=== PATIENT | female | born 1930 | race Caucasian/White ===

== ENCOUNTER → 2016-08-21 | Outpatient (REF) | payer MEDICARE, BC ==
[~2016-08-21] MED LIST: /AMIO20TA PO; /ESOM40CA OR; ACET50TAOT PO; ATEN25TA PO; BAYE325T12 PO; CALC600T30 PO; NEUR100C OR; NEUR300C OR; PAIN325T OR; SENN8.6T5 OR; TRAM50TA2 OR; VIT D 2000 OR
[2016-08-21 19:21] LABS: MEAN CORPUSCULAR HEMOGLOBIN 32.4 pg (27.0-33.0); MEAN CORPUSCULAR HGB CONC 32.9 g/dl (32.0-36.5); MEAN CORPUSCULAR VOLUME 98.3 fl (80.0-96.0)
[2016-08-21 19:42] LABS: ALBUMIN 3.9 GM/DL (3.2-5.2); ALBUMIN/GLOBULIN RATIO 1.39 (1.00-1.93); BILIRUBIN,TOTAL 0.7 MG/DL (0.2-1.0); CREATININE FOR GFR 1.08 MG/DL (0.55-1.02); MAGNESIUM LEVEL 2.3 MG/DL (1.8-2.4); TOTAL PROTEIN 6.7 GM/DL (6.4-8.2)
== END ==
LOC: M LABDRWAD 08:58
PROVIDERS: ATTEND Physician Assistant
DX: I48.0 Paroxysmal atrial fibrillation (principal); I11.9 Hypertensive heart disease without heart failure

== ENCOUNTER → 2017-01-19 | Outpatient (CLI) | payer MEDICARE, BC ==
--- NOTE | 2017-01-19 13:35 | REP ---
Clinical: Chest pain with paroxysmal atrial fibrillation. Technique: PA and lateral. Comparison: 08/08/2016. Findings: Mediastinum and cardiac silhouette are stable. Pacemaker in stable satisfactory position. Lung maria demonstrate diffuse chronic interstitial changes similar to prior examination. A very subtle right upper lobe density overlying the posterior sixth rib cannot be excluded and may warrant chest CT follow-up. No further consolidation, effusion, or pneumothorax. Skeletal structures demonstrate osteopenia and degenerative changes including chronic stable compression deformity at T6. Impression: 1. Cannot exclude subtle right upper lobe density. Consider chest CT for further investigation if necessary. 2. Chronic stable changes. No further acute cardiopulmonary process identified. Signed by Austin Hartman MD 01/19/2017 01:27 P
[2017-01-19 21:36] LABS: ALBUMIN 3.7 GM/DL (3.2-5.2); ALBUMIN/GLOBULIN RATIO 1.32 (1.00-1.93); BILIRUBIN,TOTAL 0.5 MG/DL (0.2-1.0); CALCIUM LEVEL 9.1 MG/DL (8.8-10.2); GLOMERULAR FILTRATION RATE 55.7 (>32); MAGNESIUM LEVEL 2.3 MG/DL (1.8-2.4); POTASSIUM SERUM 4.5 MEQ/L (3.5-5.1); TOTAL PROTEIN 6.5 GM/DL (6.4-8.2)
== END ==
LOC: M ADAMS 13:07
PROVIDERS: ATTEND Physician Assistant
DX: I48.0 Paroxysmal atrial fibrillation (principal); I11.9 Hypertensive heart disease without heart failure; R91.8 Other nonspecific abnormal finding of lung field

== ENCOUNTER → 2017-09-22 | Outpatient (REF) | payer MEDICARE, BC ==
[2017-09-23 14:37] LABS: AMYLASE 97 U/L (25-115)
[2017-09-23 14:37] LABS: LIPASE 315 U/L (73-393)
== END ==
LOC: M LAB REF 13:42
DX: R11.2 Nausea with vomiting, unspecified (principal); R74.0 Nonspecific elevation of levels of transaminase and lactic acid dehydrogenase [LDH]
CPT/HCPCS: 82150

== ENCOUNTER → 2017-09-29 | Outpatient (REF) | payer MEDICARE, BC | LOC: M LAB REF 16:21 | DX: R30.0 Dysuria (principal); R35.0 Frequency of micturition | CPT/HCPCS: 87186 ==

== ENCOUNTER → 2017-10-09 | Outpatient (REF) | payer MEDICARE, BC ==
[2017-10-09 13:05] LABS: BILIRUBIN,DIRECT 0.5 MG/DL (0.0-0.2)
== END ==
LOC: M LAB REF 12:27
DX: R74.0 Nonspecific elevation of levels of transaminase and lactic acid dehydrogenase [LDH] (principal)
CPT/HCPCS: 82248

== ENCOUNTER → 2017-10-13 | Outpatient (REF) | payer MEDICARE, BC ==
[2017-10-13 20:12] LABS: ALBUMIN 3.8 GM/DL (3.2-5.2); ALKALINE PHOSPHATASE 118 U/L (45-117); ALT/SGPT 39 U/L (12-78); ANION GAP 8 MEQ/L (8-16); AST/SGOT 29 U/L (7-37); BILIRUBIN,DIRECT 0.5 MG/DL (0.0-0.2); BILIRUBIN,TOTAL 0.9 MG/DL (0.2-1.0); BLOOD UREA NITROGEN 30 MG/DL (7-18); CALCIUM LEVEL 9.3 MG/DL (8.8-10.2); CARBON DIOXIDE LEVEL 27 MEQ/L (21-32); CHLORIDE LEVEL 108 MEQ/L (98-107); CREATININE FOR GFR 1.35 MG/DL (0.55-1.30); GLOMERULAR FILTRATION RATE 39.3 (>32); GLUCOSE, FASTING 90 MG/DL (70-100); POTASSIUM SERUM 4.5 MEQ/L (3.5-5.1); SODIUM LEVEL 143 MEQ/L (136-145); TOTAL PROTEIN 7.6 GM/DL (6.4-8.2)
== END ==
LOC: M LAB REF 19:22
DX: R94.5 Abnormal results of liver function studies (principal)
CPT/HCPCS: 82248

== ENCOUNTER 2017-11-02 12:03 | Inpatient (IN) | payer MEDICARE, BC ==
[2017-11-02] MEDS: POTASSIUM CHLORIDE 10 MEQ SR TABLET PO (09:00)
[2017-11-02] MEDS: AMIODARONE 200 MG TAB (PACERONE) PO (09:00)
[2017-11-02] MEDS: MULTIVITAMINS/MINERALS THERAP 1 TAB PO (09:00)
[~2017-11-02 12:03] MED LIST changes: -/AMIO20TA PO; -/ESOM40CA OR; -ACET50TAOT PO; -ATEN25TA PO; -BAYE325T12 PO; -CALC600T30 PO; +ENOXAPARIN 40 MG/0.4 ML SYRINGE (J1650) SC; -NEUR100C OR; -NEUR300C OR; -PAIN325T OR; -SENN8.6T5 OR; -TRAM50TA2 OR; -VIT D 2000 OR
[2017-11-02 12:53] LABS: VENOUS BASE EXCESS 4.3 (-2.0-2.0); VENOUS HCO3 30.7 MEQ/L (23.0-27.0); VENOUS PARTIAL PRESSURE CO2 54.9 mmHg (38.0-50.0); VENOUS PARTIAL PRESSURE O2 28.4 mmHg (30.0-50.0); VENOUS PH 7.366 UNITS (7.330-7.430); VENOUS STANDARD HCO3 27.4 MEQ/L; VENOUS TOTAL CO2 32.4 MEQ/L (24.0-28.0)
[2017-11-02 13:00] LABS: BASO % 0.1 % (0.0-1.0); HEMATOCRIT 37.5 % (36.0-47.0); HEMOGLOBIN 12.7 g/dl (12.0-15.5); IMMATURE GRANULOCYTE % 1.1 % (0-3.0); LYMPH # 0.8 10^3/uL (1.5-4.5); LYMPH % 4.3 % (24.0-44.0); MEAN CORPUSCULAR HEMOGLOBIN 32.3 pg (27.0-33.0); MEAN CORPUSCULAR HGB CONC 33.9 g/dl (32.0-36.5); MEAN CORPUSCULAR VOLUME 95.4 fl (80.0-96.0); MONO # 1.3 10^3/uL (0.0-0.8); MONO % 7.2 % (0.0-5.0); NEUTROPHILS # 15.5 10^3/uL (1.8-7.7); NEUTROPHILS % 87.3 % (36.0-66.0); PLATELET COUNT, AUTOMATED 161 10^3/uL (150-450); RED BLOOD COUNT 3.93 10^6/uL (4.00-5.40); RED CELL DISTRIBUTION WIDTH 13.8 % (11.5-14.5); WHITE BLOOD COUNT 17.8 10^3/uL (4.0-10.0)
[2017-11-02 13:09] LABS: ALBUMIN 3.2 GM/DL (3.2-5.2); ALBUMIN/GLOBULIN RATIO 0.94 (1.00-1.93); ALKALINE PHOSPHATASE 145 U/L (45-117); ALT/SGPT 78 U/L (12-78); ANION GAP 6 MEQ/L (8-16); AST/SGOT 78 U/L (7-37); BILIRUBIN,DIRECT 0.4 MG/DL (0.0-0.2); BILIRUBIN,TOTAL 1.2 MG/DL (0.2-1.0); BLOOD UREA NITROGEN 32 MG/DL (7-18); CALCIUM LEVEL 9.1 MG/DL (8.8-10.2); CARBON DIOXIDE LEVEL 30 MEQ/L (21-32); CHLORIDE LEVEL 107 MEQ/L (98-107); CPK CREATINE PHOSPHOKINASE 476 U/L (26-192); CREATININE FOR GFR 0.99 MG/DL (0.55-1.30); GLOMERULAR FILTRATION RATE 56.2 (>32); GLUCOSE, FASTING 108 MG/DL (70-100); POTASSIUM SERUM 4.1 MEQ/L (3.5-5.1); SODIUM LEVEL 143 MEQ/L (136-145); TOTAL PROTEIN 6.6 GM/DL (6.4-8.2); TROPONIN I 0.02 NG/ML (< 0.10)
[2017-11-02 13:15] LABS: AMMONIA < 10 uMOL/L (<32)
[2017-11-02 13:15] LABS: CK-MB VALUE MASS 4.9 NG/ML (<3.6); MB/CK RELATIVE INDEX 1.02 (< OR =4)
[2017-11-02 13:51] LABS: LACTIC ACID SEPSIS PROTOCOL 1.6 MMOL/L (0.4-2.0)
[2017-11-02] MEDS: NS 1,000 ML IV ×2 (15:20→22:10)
[2017-11-02 17:11] LABS: KETONE, URINE AUTO RFX TRACE mg/dL (NEGATIVE); LEUKOCYTE ESTERASE UR AUTO RFX NEGATIVE (NEGATIVE); MUCUS, URINE RFX SMALL (NEGATIVE); NITRITE, URINE AUTO RFX NEGATIVE (NEGATIVE); RBC, URINE AUTO RFX 2 /HPF (0-3); SQUAM EPITHELIAL CELL UR AURFX 0 /HPF (0-6); WBC, URINE AUTO RFX 7 /HPF (0-3)
[2017-11-02 20:50] LABS: CPK CREATINE PHOSPHOKINASE 308 U/L (26-192); MB/CK RELATIVE INDEX 0.97 (< OR =4); TROPONIN I < 0.02 NG/ML (< 0.10)
[2017-11-02] MEDS: APIXABAN 2.5 MG TAB (ELIQUIS) PO (22:10)
[2017-11-03 05:05] LABS: HEMATOCRIT 31.9 % (36.0-47.0); MEAN CORPUSCULAR HEMOGLOBIN 31.7 pg (27.0-33.0); MEAN CORPUSCULAR HGB CONC 33.2 g/dl (32.0-36.5); MEAN CORPUSCULAR VOLUME 95.5 fl (80.0-96.0); PLATELET COUNT, AUTOMATED 150 10^3/uL (150-450); RED BLOOD COUNT 3.34 10^6/uL (4.00-5.40); RED CELL DISTRIBUTION WIDTH 14.1 % (11.5-14.5)
[2017-11-03 05:10] LABS: HEMOGLOBIN 10.6 g/dl (12.0-15.5)
[2017-11-03 05:24] LABS: ALBUMIN 2.4 GM/DL (3.2-5.2); ALBUMIN/GLOBULIN RATIO 0.69 (1.00-1.93); ALKALINE PHOSPHATASE 99 U/L (45-117); ALT/SGPT 51 U/L (12-78); ANION GAP 8 MEQ/L (8-16); AST/SGOT 43 U/L (7-37); BLOOD UREA NITROGEN 30 MG/DL (7-18); CALCIUM LEVEL 8.4 MG/DL (8.8-10.2); CARBON DIOXIDE LEVEL 24 MEQ/L (21-32); CHLORIDE LEVEL 110 MEQ/L (98-107); CPK CREATINE PHOSPHOKINASE 170 U/L (26-192); CREATININE FOR GFR 0.89 MG/DL (0.55-1.30); GLOMERULAR FILTRATION RATE > 60.0 (>32); GLUCOSE, FASTING 89 MG/DL (70-100); MAGNESIUM LEVEL 2.1 MG/DL (1.8-2.4); POTASSIUM SERUM 3.8 MEQ/L (3.5-5.1); SODIUM LEVEL 142 MEQ/L (136-145); TOTAL PROTEIN 5.9 GM/DL (6.4-8.2); TROPONIN I 0.02 NG/ML (< 0.10)
[2017-11-03 05:25] LABS: CK-MB VALUE MASS 1.6 NG/ML (<3.6); MB/CK RELATIVE INDEX 0.94 (< OR =4)
[2017-11-03] MEDS: LEVOTHYROXINE 50MCG TABLET (0.05MG) PO (06:05)
[2017-11-03] MEDS: APIXABAN 2.5 MG TAB (ELIQUIS) PO ×2 (08:35→21:18)
[2017-11-03] MEDS: POTASSIUM CHLORIDE 10 MEQ SR TABLET PO (08:35)
[2017-11-03] MEDS: MULTIVITAMINS/MINERALS THERAP 1 TAB PO (08:35)
[2017-11-03] MEDS: AMIODARONE 200 MG TAB (PACERONE) PO (08:35)
[2017-11-03] MEDS: BISOPROLOL FUMARATE 10 MG TAB PO (08:36)
[2017-11-03] MEDS: ACETAMINOPHEN TAB 650MG DOSE (2X325MG) PO ×2 (08:40→17:46)
[2017-11-03] MEDS: ONDANSETRON 4MG/2ML VIAL (J2405) IV (09:02)
[2017-11-03 09:09] LABS: VITAMIN B12 LEVEL 565 PG/ML (247-911)
[2017-11-03 13:09] LABS: CPK CREATINE PHOSPHOKINASE 159 U/L (26-192); TROPONIN I < 0.02 NG/ML (< 0.10)
[2017-11-03 13:10] LABS: CK-MB VALUE MASS 1.9 NG/ML (<3.6); MB/CK RELATIVE INDEX 1.19 (< OR =4)
[2017-11-04 05:18] LABS: HEMATOCRIT 32.2 % (36.0-47.0); HEMOGLOBIN 10.5 g/dl (12.0-15.5); MEAN CORPUSCULAR HEMOGLOBIN 31.8 pg (27.0-33.0); MEAN CORPUSCULAR HGB CONC 32.6 g/dl (32.0-36.5); MEAN CORPUSCULAR VOLUME 97.6 fl (80.0-96.0); PLATELET COUNT, AUTOMATED 146 10^3/uL (150-450); WHITE BLOOD COUNT 9.2 10^3/uL (4.0-10.0)
[2017-11-04 05:42] LABS: ALBUMIN 2.4 GM/DL (3.2-5.2); ALBUMIN/GLOBULIN RATIO 0.71 (1.00-1.93); ALKALINE PHOSPHATASE 86 U/L (45-117); ALT/SGPT 41 U/L (12-78); ANION GAP 2 MEQ/L (8-16); AST/SGOT 23 U/L (7-37); BILIRUBIN,TOTAL 0.7 MG/DL (0.2-1.0); BLOOD UREA NITROGEN 27 MG/DL (7-18); CALCIUM LEVEL 8.5 MG/DL (8.8-10.2); CARBON DIOXIDE LEVEL 29 MEQ/L (21-32); CHLORIDE LEVEL 112 MEQ/L (98-107); CREATININE FOR GFR 0.78 MG/DL (0.55-1.30); GLOMERULAR FILTRATION RATE > 60.0 (>32); GLUCOSE, FASTING 94 MG/DL (70-100); POTASSIUM SERUM 3.9 MEQ/L (3.5-5.1); SODIUM LEVEL 143 MEQ/L (136-145); TOTAL PROTEIN 5.8 GM/DL (6.4-8.2)
[2017-11-04] MEDS: LEVOTHYROXINE 50MCG TABLET (0.05MG) PO (06:10)
[2017-11-04] MEDS: POTASSIUM CHLORIDE 10 MEQ SR TABLET PO (07:57)
[2017-11-04] MEDS: MULTIVITAMINS/MINERALS THERAP 1 TAB PO (07:57)
[2017-11-04] MEDS: AMIODARONE 200 MG TAB (PACERONE) PO (07:57)
[2017-11-04] MEDS: BISOPROLOL FUMARATE 10 MG TAB PO (07:58)
[2017-11-04] MEDS: APIXABAN 2.5 MG TAB (ELIQUIS) PO ×2 (07:58→20:34)
[2017-11-04] MEDS: ACETAMINOPHEN TAB 650MG DOSE (2X325MG) PO (20:35)
[2017-11-05 04:41] LABS: HEMATOCRIT 32.2 % (36.0-47.0); HEMOGLOBIN 10.5 g/dl (12.0-15.5); MEAN CORPUSCULAR HEMOGLOBIN 30.9 pg (27.0-33.0); MEAN CORPUSCULAR HGB CONC 32.6 g/dl (32.0-36.5); MEAN CORPUSCULAR VOLUME 94.7 fl (80.0-96.0); PLATELET COUNT, AUTOMATED 160 10^3/uL (150-450); RED CELL DISTRIBUTION WIDTH 13.8 % (11.5-14.5); WHITE BLOOD COUNT 7.5 10^3/uL (4.0-10.0)
[2017-11-05 05:05] LABS: ALBUMIN 2.3 GM/DL (3.2-5.2); ALBUMIN/GLOBULIN RATIO 0.62 (1.00-1.93); ALKALINE PHOSPHATASE 84 U/L (45-117); ALT/SGPT 32 U/L (12-78); ANION GAP 6 MEQ/L (8-16); AST/SGOT 20 U/L (7-37); BILIRUBIN,TOTAL 0.4 MG/DL (0.2-1.0); BLOOD UREA NITROGEN 21 MG/DL (7-18); CALCIUM LEVEL 8.4 MG/DL (8.8-10.2); CARBON DIOXIDE LEVEL 26 MEQ/L (21-32); CHLORIDE LEVEL 111 MEQ/L (98-107); CREATININE FOR GFR 0.68 MG/DL (0.55-1.30); GLOMERULAR FILTRATION RATE > 60.0 (>32); GLUCOSE, FASTING 99 MG/DL (70-100); MAGNESIUM LEVEL 2.1 MG/DL (1.8-2.4); POTASSIUM SERUM 3.9 MEQ/L (3.5-5.1); SODIUM LEVEL 143 MEQ/L (136-145)
[2017-11-05] MEDS: LEVOTHYROXINE 50MCG TABLET (0.05MG) PO (06:00)
[2017-11-05] MEDS: APIXABAN 2.5 MG TAB (ELIQUIS) PO ×2 (09:02→20:26)
[2017-11-05] MEDS: BISOPROLOL FUMARATE 10 MG TAB PO (09:02)
[2017-11-05] MEDS: MULTIVITAMINS/MINERALS THERAP 1 TAB PO (09:02)
[2017-11-05] MEDS: AMIODARONE 200 MG TAB (PACERONE) PO (09:02)
[2017-11-05] MEDS: POTASSIUM CHLORIDE 10 MEQ SR TABLET PO (09:02)
[2017-11-06] MEDS: LEVOTHYROXINE 50MCG TABLET (0.05MG) PO (05:47)
[2017-11-06 07:14] LABS: HEMATOCRIT 33.9 % (36.0-47.0); HEMOGLOBIN 11.4 g/dl (12.0-15.5); MEAN CORPUSCULAR HEMOGLOBIN 31.5 pg (27.0-33.0); MEAN CORPUSCULAR HGB CONC 33.6 g/dl (32.0-36.5); MEAN CORPUSCULAR VOLUME 93.6 fl (80.0-96.0); PLATELET COUNT, AUTOMATED 204 10^3/uL (150-450); RED BLOOD COUNT 3.62 10^6/uL (4.00-5.40); RED CELL DISTRIBUTION WIDTH 13.5 % (11.5-14.5); WHITE BLOOD COUNT 6.8 10^3/uL (4.0-10.0)
[2017-11-06 07:38] LABS: ALBUMIN 2.5 GM/DL (3.2-5.2); ALBUMIN/GLOBULIN RATIO 0.69 (1.00-1.93); ALKALINE PHOSPHATASE 77 U/L (45-117); ALT/SGPT 30 U/L (12-78); ANION GAP 8 MEQ/L (8-16); AST/SGOT 19 U/L (7-37); BILIRUBIN,TOTAL 0.6 MG/DL (0.2-1.0); BLOOD UREA NITROGEN 17 MG/DL (7-18); CALCIUM LEVEL 8.7 MG/DL (8.8-10.2); CARBON DIOXIDE LEVEL 27 MEQ/L (21-32); CHLORIDE LEVEL 105 MEQ/L (98-107); CREATININE FOR GFR 0.67 MG/DL (0.55-1.30); GLOMERULAR FILTRATION RATE > 60.0 (>32); GLUCOSE, FASTING 87 MG/DL (70-100); POTASSIUM SERUM 4.1 MEQ/L (3.5-5.1); SODIUM LEVEL 140 MEQ/L (136-145); TOTAL PROTEIN 6.1 GM/DL (6.4-8.2)
[2017-11-06] MEDS: BISOPROLOL FUMARATE 10 MG TAB PO (10:04)
[2017-11-06] MEDS: POTASSIUM CHLORIDE 10 MEQ SR TABLET PO (10:04)
[2017-11-06] MEDS: MULTIVITAMINS/MINERALS THERAP 1 TAB PO (10:05)
[2017-11-06] MEDS: AMIODARONE 200 MG TAB (PACERONE) PO (10:05)
[2017-11-06] MEDS: APIXABAN 2.5 MG TAB (ELIQUIS) PO (10:05)
== END 2017-11-06 14:55 | DRG 544 ==
LOC: M MS5PR 11-05 14:03 → M ED 12:03 → M ED INP 17:24 → M ICU 20:57
DX: M80.88XA Other osteoporosis with current pathological fracture, vertebra(e), initial encounter for fracture (principal); E86.0 Dehydration; R55 Syncope and collapse; D72.829 Elevated white blood cell count, unspecified; I48.91 Unspecified atrial fibrillation; Z79.01 Long term (current) use of anticoagulants; I10 Essential (primary) hypertension; Z86.718 Personal history of other venous thrombosis and embolism; Z79.899 Other long term (current) drug therapy; R32 Unspecified urinary incontinence; R15.9 Full incontinence of feces; Z95.0 Presence of cardiac pacemaker

== ENCOUNTER 2017-11-06 15:10 | Inpatient (IN) | payer MEDICARE, BC ==
[2017-11-06] MEDS ORDERED: ONDANSETRON 4 MG TAB (S0181) PO (15:15)
[2017-11-06] MEDS ORDERED: FLEET ENEMA PR (15:15)
[2017-11-06] MEDS ORDERED: BISACODYL 10 MG SUPP PR (15:15)
[2017-11-06] MEDS: APIXABAN 2.5 MG TAB (ELIQUIS) PO (22:00)
[2017-11-06] MEDS: DICLOFENAC EPOLAMINE 1.3 % PATCH TOP (22:01)
[2017-11-06] MEDS: SENNA 8.6 MG TAB (SENOKOT) PO (22:02)
[2017-11-07] MEDS: LEVOTHYROXINE 50MCG TABLET (0.05MG) PO (06:35)
[2017-11-07 06:42] LABS: BASO # 0.1 10^3/uL (0.0-0.2); BASO % 0.7 % (0.0-1.0); EOS # 0.2 10^3/uL (0.0-0.50); EOS % 3.3 % (0.0-3.0); HEMATOCRIT 34.9 % (36.0-47.0); HEMOGLOBIN 11.6 g/dl (12.0-15.5); IMMATURE GRANULOCYTE % 3.9 % (0-3.0); LYMPH # 1.4 10^3/uL (1.5-4.5); LYMPH % 19.4 % (24.0-44.0); MEAN CORPUSCULAR HEMOGLOBIN 31.2 pg (27.0-33.0); MEAN CORPUSCULAR HGB CONC 33.2 g/dl (32.0-36.5); MEAN CORPUSCULAR VOLUME 93.8 fl (80.0-96.0); MONO # 0.9 10^3/uL (0.0-0.8); MONO % 12.3 % (0.0-5.0); NEUTROPHILS # 4.4 10^3/uL (1.8-7.7); NEUTROPHILS % 60.4 % (36.0-66.0); PLATELET COUNT, AUTOMATED 250 10^3/uL (150-450); RED BLOOD COUNT 3.72 10^6/uL (4.00-5.40); RED CELL DISTRIBUTION WIDTH 13.8 % (11.5-14.5); WHITE BLOOD COUNT 7.2 10^3/uL (4.0-10.0)
[2017-11-07 07:08] LABS: ALBUMIN 2.8 GM/DL (3.2-5.2); ALBUMIN/GLOBULIN RATIO 0.85 (1.00-1.93); ALKALINE PHOSPHATASE 86 U/L (45-117); ALT/SGPT 31 U/L (12-78); ANION GAP 7 MEQ/L (8-16); AST/SGOT 17 U/L (7-37); BILIRUBIN,TOTAL 0.5 MG/DL (0.2-1.0); BLOOD UREA NITROGEN 18 MG/DL (7-18); CALCIUM LEVEL 8.7 MG/DL (8.8-10.2); CARBON DIOXIDE LEVEL 28 MEQ/L (21-32); CHLORIDE LEVEL 107 MEQ/L (98-107); CREATININE FOR GFR 0.72 MG/DL (0.55-1.30); GLOMERULAR FILTRATION RATE > 60.0 (>32); GLUCOSE, FASTING 94 MG/DL (70-100); POTASSIUM SERUM 4.2 MEQ/L (3.5-5.1); SODIUM LEVEL 142 MEQ/L (136-145); TOTAL PROTEIN 6.1 GM/DL (6.4-8.2)
[2017-11-07] MEDS: APIXABAN 2.5 MG TAB (ELIQUIS) PO ×2 (09:25→20:39)
[2017-11-07] MEDS: AMIODARONE 200 MG TAB (PACERONE) PO (09:26)
[2017-11-07] MEDS: PANTOPRAZOLE 40MG TAB (PROTONIX) PO (09:26)
[2017-11-07] MEDS: POTASSIUM CHLORIDE 10 MEQ SR TABLET PO (09:26)
[2017-11-07] MEDS: BISOPROLOL FUMARATE 10 MG TAB PO (09:27)
[2017-11-07] MEDS: MULTIVITAMINS/MINERALS THERAP 1 TAB PO (09:27)
[2017-11-07] MEDS: DICLOFENAC EPOLAMINE 1.3 % PATCH TOP ×2 (09:28→20:40)
[2017-11-07] MEDS: ACETAMINOPHEN TAB 650MG DOSE (2X325MG) PO (14:09)
[2017-11-07] MEDS: SENNA 8.6 MG TAB (SENOKOT) PO (20:39)
[2017-11-08] MEDS: LEVOTHYROXINE 50MCG TABLET (0.05MG) PO (05:54)
[2017-11-08] MEDS: DICLOFENAC EPOLAMINE 1.3 % PATCH TOP ×2 (09:12→21:04)
[2017-11-08] MEDS: POTASSIUM CHLORIDE 10 MEQ SR TABLET PO (09:13)
[2017-11-08] MEDS: PANTOPRAZOLE 40MG TAB (PROTONIX) PO (09:13)
[2017-11-08] MEDS: MULTIVITAMINS/MINERALS THERAP 1 TAB PO (09:13)
[2017-11-08] MEDS: BISACODYL 5 MG TAB PO (09:13)
[2017-11-08] MEDS: APIXABAN 2.5 MG TAB (ELIQUIS) PO ×2 (09:13→21:04)
[2017-11-08] MEDS: AMIODARONE 200 MG TAB (PACERONE) PO (09:14)
[2017-11-08] MEDS: BISOPROLOL FUMARATE 10 MG TAB PO (09:14)
[2017-11-08] MEDS: SENNA 8.6 MG TAB (SENOKOT) PO (20:35)
[2017-11-08] MEDS: ACETAMINOPHEN TAB 650MG DOSE (2X325MG) PO (21:05)
[2017-11-09] MEDS: LEVOTHYROXINE 50MCG TABLET (0.05MG) PO (06:12)
[2017-11-09] MEDS: BISOPROLOL FUMARATE 10 MG TAB PO (08:22)
[2017-11-09] MEDS: MULTIVITAMINS/MINERALS THERAP 1 TAB PO (08:22)
[2017-11-09] MEDS: AMIODARONE 200 MG TAB (PACERONE) PO (08:22)
[2017-11-09] MEDS: PANTOPRAZOLE 40MG TAB (PROTONIX) PO (08:22)
[2017-11-09] MEDS: APIXABAN 2.5 MG TAB (ELIQUIS) PO ×2 (08:22→20:16)
[2017-11-09] MEDS: POTASSIUM CHLORIDE 10 MEQ SR TABLET PO (08:22)
[2017-11-09] MEDS: DICLOFENAC EPOLAMINE 1.3 % PATCH TOP ×2 (08:23→20:16)
[2017-11-09] MEDS: SENOKOT S TAB PO ×2 (13:22→20:16)
[2017-11-10] MEDS: LEVOTHYROXINE 50MCG TABLET (0.05MG) PO (06:35)
[2017-11-10 07:26] LABS: BASO # 0.1 10^3/uL (0.0-0.2); BASO % 0.6 % (0.0-1.0); EOS # 0.2 10^3/uL (0.0-0.50); HEMATOCRIT 34.5 % (36.0-47.0); HEMOGLOBIN 11.5 g/dl (12.0-15.5); IMMATURE GRANULOCYTE % 1.7 % (0-3.0); LYMPH # 1.2 10^3/uL (1.5-4.5); LYMPH % 14.2 % (24.0-44.0); MEAN CORPUSCULAR HEMOGLOBIN 31.8 pg (27.0-33.0); MEAN CORPUSCULAR HGB CONC 33.3 g/dl (32.0-36.5); MEAN CORPUSCULAR VOLUME 95.3 fl (80.0-96.0); MONO # 0.7 10^3/uL (0.0-0.8); MONO % 8.6 % (0.0-5.0); NEUTROPHILS # 6.1 10^3/uL (1.8-7.7); NEUTROPHILS % 72.9 % (36.0-66.0); PLATELET COUNT, AUTOMATED 307 10^3/uL (150-450); RED BLOOD COUNT 3.62 10^6/uL (4.00-5.40); RED CELL DISTRIBUTION WIDTH 14.1 % (11.5-14.5); WHITE BLOOD COUNT 8.4 10^3/uL (4.0-10.0)
[2017-11-10 07:40] LABS: ANION GAP 4 MEQ/L (8-16); BLOOD UREA NITROGEN 24 MG/DL (7-18); CALCIUM LEVEL 9.2 MG/DL (8.8-10.2); CARBON DIOXIDE LEVEL 30 MEQ/L (21-32); CHLORIDE LEVEL 105 MEQ/L (98-107); GLOMERULAR FILTRATION RATE 55.6 (>32); GLUCOSE, FASTING 97 MG/DL (70-100); POTASSIUM SERUM 4.5 MEQ/L (3.5-5.1); SODIUM LEVEL 139 MEQ/L (136-145)
[2017-11-10] MEDS: SENOKOT S TAB PO ×2 (09:45→20:33)
[2017-11-10] MEDS: MULTIVITAMINS/MINERALS THERAP 1 TAB PO (09:45)
[2017-11-10] MEDS: BISOPROLOL FUMARATE 10 MG TAB PO (09:45)
[2017-11-10] MEDS: PANTOPRAZOLE 40MG TAB (PROTONIX) PO (09:46)
[2017-11-10] MEDS: POTASSIUM CHLORIDE 10 MEQ SR TABLET PO (09:46)
[2017-11-10] MEDS: DICLOFENAC EPOLAMINE 1.3 % PATCH TOP ×2 (09:46→20:33)
[2017-11-10] MEDS: APIXABAN 2.5 MG TAB (ELIQUIS) PO ×2 (09:46→20:33)
[2017-11-10] MEDS: AMIODARONE 200 MG TAB (PACERONE) PO (09:46)
[2017-11-11] MEDS: LEVOTHYROXINE 50MCG TABLET (0.05MG) PO (05:29)
[2017-11-11] MEDS: BISOPROLOL FUMARATE 10 MG TAB PO (09:00)
[2017-11-11] MEDS: BISOPROLOL FUMARATE 5 MG TAB PO (09:00)
[2017-11-11] MEDS: SENOKOT S TAB PO ×2 (09:48→20:22)
[2017-11-11] MEDS: DICLOFENAC EPOLAMINE 1.3 % PATCH TOP ×2 (09:48→20:22)
[2017-11-11] MEDS: MULTIVITAMINS/MINERALS THERAP 1 TAB PO (09:48)
[2017-11-11] MEDS: APIXABAN 2.5 MG TAB (ELIQUIS) PO ×2 (09:48→20:22)
[2017-11-11] MEDS: POTASSIUM CHLORIDE 10 MEQ SR TABLET PO (09:48)
[2017-11-11] MEDS: PANTOPRAZOLE 40MG TAB (PROTONIX) PO (09:48)
[2017-11-11] MEDS: AMIODARONE 200 MG TAB (PACERONE) PO (09:54)
[2017-11-11] MEDS ORDERED: PILL CRUSHER/CUTTER 1 EACH XX (12:30)
[2017-11-11 12:56] LABS: HEMATOCRIT 35.9 % (36.0-47.0); HEMOGLOBIN 11.8 g/dl (12.0-15.5); MEAN CORPUSCULAR HGB CONC 32.9 g/dl (32.0-36.5); MEAN CORPUSCULAR VOLUME 97.3 fl (80.0-96.0); PLATELET COUNT, AUTOMATED 289 10^3/uL (150-450); RED BLOOD COUNT 3.69 10^6/uL (4.00-5.40); RED CELL DISTRIBUTION WIDTH 14.3 % (11.5-14.5)
[2017-11-11 13:44] LABS: ALBUMIN 3.3 GM/DL (3.2-5.2); ALBUMIN/GLOBULIN RATIO 0.97 (1.00-1.93); ALKALINE PHOSPHATASE 90 U/L (45-117); ALT/SGPT 34 U/L (12-78); ANION GAP 6 MEQ/L (8-16); AST/SGOT 24 U/L (7-37); BILIRUBIN,TOTAL 0.4 MG/DL (0.2-1.0); BLOOD UREA NITROGEN 26 MG/DL (7-18); CALCIUM LEVEL 9.1 MG/DL (8.8-10.2); CARBON DIOXIDE LEVEL 28 MEQ/L (21-32); CHLORIDE LEVEL 104 MEQ/L (98-107); GLOMERULAR FILTRATION RATE 55.6 (>32); GLUCOSE, FASTING 106 MG/DL (70-100); SODIUM LEVEL 138 MEQ/L (136-145); TOTAL PROTEIN 6.7 GM/DL (6.4-8.2)
[2017-11-11 15:11] LABS: CALCIUM OXALATE CRYSTALS RFX SMALL; KETONE, URINE AUTO RFX NEGATIVE (NEGATIVE); NITRITE, URINE AUTO RFX NEGATIVE (NEGATIVE); RBC, URINE AUTO RFX 20 /HPF (0-3); SPECIFIC GRAVITY UR AUTO RFX 1.012 (1.002-1.035); SQUAM EPITHELIAL CELL UR AURFX 0 /HPF (0-6)
[2017-11-11 15:12] LABS: LEUKOCYTE ESTERASE UR AUTO RFX 2+ (NEGATIVE); WBC, URINE AUTO RFX 30 /HPF (0-3)
[2017-11-11] MEDS: BACTRIM 160MG/800MG DS TAB PO ×2 (15:35→20:22)
[2017-11-11] MEDS: ACETAMINOPHEN TAB 650MG DOSE (2X325MG) PO (22:54)
[2017-11-12] MEDS: LEVOTHYROXINE 50MCG TABLET (0.05MG) PO (06:34)
[2017-11-12 06:57] LABS: BASO % 0.5 % (0.0-1.0); EOS # 0.2 10^3/uL (0.0-0.50); EOS % 1.9 % (0.0-3.0); HEMATOCRIT 33.6 % (36.0-47.0); HEMOGLOBIN 11.1 g/dl (12.0-15.5); IMMATURE GRANULOCYTE % 1.3 % (0-3.0); LYMPH # 1.2 10^3/uL (1.5-4.5); LYMPH % 14.7 % (24.0-44.0); MEAN CORPUSCULAR HEMOGLOBIN 32.1 pg (27.0-33.0); MEAN CORPUSCULAR VOLUME 97.1 fl (80.0-96.0); MONO # 0.6 10^3/uL (0.0-0.8); MONO % 7.8 % (0.0-5.0); NEUTROPHILS # 6.1 10^3/uL (1.8-7.7); NEUTROPHILS % 73.8 % (36.0-66.0); PLATELET COUNT, AUTOMATED 286 10^3/uL (150-450); RED BLOOD COUNT 3.46 10^6/uL (4.00-5.40); RED CELL DISTRIBUTION WIDTH 14.3 % (11.5-14.5); WHITE BLOOD COUNT 8.2 10^3/uL (4.0-10.0)
[2017-11-12 07:19] LABS: ANION GAP 6 MEQ/L (8-16); BLOOD UREA NITROGEN 21 MG/DL (7-18); CARBON DIOXIDE LEVEL 29 MEQ/L (21-32); CHLORIDE LEVEL 107 MEQ/L (98-107); CREATININE FOR GFR 0.95 MG/DL (0.55-1.30); GLUCOSE, FASTING 85 MG/DL (70-100); POTASSIUM SERUM 4.6 MEQ/L (3.5-5.1); SODIUM LEVEL 142 MEQ/L (136-145)
[2017-11-12] MEDS: MULTIVITAMINS/MINERALS THERAP 1 TAB PO (08:10)
[2017-11-12] MEDS: AMIODARONE 200 MG TAB (PACERONE) PO (08:10)
[2017-11-12] MEDS: APIXABAN 2.5 MG TAB (ELIQUIS) PO ×2 (08:10→21:21)
[2017-11-12] MEDS: BISOPROLOL FUMARATE 5 MG TAB PO (08:10)
[2017-11-12] MEDS: BACTRIM 160MG/800MG DS TAB PO ×2 (08:11→21:21)
[2017-11-12] MEDS: PANTOPRAZOLE 40MG TAB (PROTONIX) PO (08:11)
[2017-11-12] MEDS: DICLOFENAC EPOLAMINE 1.3 % PATCH TOP ×2 (08:11→21:22)
[2017-11-12] MEDS: SENOKOT S TAB PO ×2 (08:11→21:21)
[2017-11-13] MEDS: LEVOTHYROXINE 50MCG TABLET (0.05MG) PO (05:21)
[2017-11-13 07:35] LABS: BASO % 0.5 % (0.0-1.0); EOS # 0.2 10^3/uL (0.0-0.50); EOS % 1.8 % (0.0-3.0); HEMATOCRIT 33.8 % (36.0-47.0); IMMATURE GRANULOCYTE % 0.9 % (0-3.0); LYMPH # 0.9 10^3/uL (1.5-4.5); LYMPH % 10.6 % (24.0-44.0); MEAN CORPUSCULAR HEMOGLOBIN 31.4 pg (27.0-33.0); MEAN CORPUSCULAR HGB CONC 32.5 g/dl (32.0-36.5); MEAN CORPUSCULAR VOLUME 96.6 fl (80.0-96.0); MONO # 0.8 10^3/uL (0.0-0.8); NEUTROPHILS # 6.8 10^3/uL (1.8-7.7); NEUTROPHILS % 77.2 % (36.0-66.0); PLATELET COUNT, AUTOMATED 266 10^3/uL (150-450); RED CELL DISTRIBUTION WIDTH 14.3 % (11.5-14.5); WHITE BLOOD COUNT 8.9 10^3/uL (4.0-10.0)
[2017-11-13 08:09] LABS: ANION GAP 5 MEQ/L (8-16); BLOOD UREA NITROGEN 21 MG/DL (7-18); CALCIUM LEVEL 8.6 MG/DL (8.8-10.2); CARBON DIOXIDE LEVEL 28 MEQ/L (21-32); CHLORIDE LEVEL 107 MEQ/L (98-107); CREATININE FOR GFR 1.12 MG/DL (0.55-1.30); GLOMERULAR FILTRATION RATE 48.8 (>32); GLUCOSE, FASTING 84 MG/DL (70-100); POTASSIUM SERUM 4.7 MEQ/L (3.5-5.1); SODIUM LEVEL 140 MEQ/L (136-145)
[2017-11-13] MEDS: BISOPROLOL FUMARATE 5 MG TAB PO (09:28)
[2017-11-13] MEDS: APIXABAN 2.5 MG TAB (ELIQUIS) PO ×2 (09:30→21:09)
[2017-11-13] MEDS: MULTIVITAMINS/MINERALS THERAP 1 TAB PO (09:30)
[2017-11-13] MEDS: SENOKOT S TAB PO ×2 (09:30→21:09)
[2017-11-13] MEDS: AMIODARONE 200 MG TAB (PACERONE) PO (09:30)
[2017-11-13] MEDS: PANTOPRAZOLE 40MG TAB (PROTONIX) PO (09:30)
[2017-11-13] MEDS: DICLOFENAC EPOLAMINE 1.3 % PATCH TOP ×2 (09:30→21:09)
[2017-11-13] MEDS: BACTRIM 160MG/800MG DS TAB PO (09:30)
[2017-11-13] MEDS: NS 1,000 ML IV ×2 (10:11→21:09)
[2017-11-13 10:47] LABS: KETONE, URINE AUTO RFX NEGATIVE (NEGATIVE); MUCUS, URINE RFX SMALL (NEGATIVE); RBC, URINE AUTO RFX 21 /HPF (0-3); SPECIFIC GRAVITY UR AUTO RFX 1.012 (1.002-1.035); SQUAM EPITHELIAL CELL UR AURFX 0 /HPF (0-6)
[2017-11-13 10:48] LABS: LEUKOCYTE ESTERASE UR AUTO RFX 2+ (NEGATIVE); NITRITE, URINE AUTO RFX POSITIVE (NEGATIVE); WBC, URINE AUTO RFX 52 /HPF (0-3)
[2017-11-13] MEDS: LevoFLOXacin 250 MG TABLET PO (11:52)
[2017-11-14] MEDS: LevoFLOXacin 250 MG TABLET PO (06:01)
[2017-11-14] MEDS: LEVOTHYROXINE 50MCG TABLET (0.05MG) PO (06:01)
[2017-11-14] MEDS: AMIODARONE 200 MG TAB (PACERONE) PO (09:31)
[2017-11-14] MEDS: APIXABAN 2.5 MG TAB (ELIQUIS) PO ×2 (09:31→20:35)
[2017-11-14] MEDS: PANTOPRAZOLE 40MG TAB (PROTONIX) PO (09:31)
[2017-11-14] MEDS: MULTIVITAMINS/MINERALS THERAP 1 TAB PO (09:31)
[2017-11-14] MEDS: SENOKOT S TAB PO ×2 (09:32→20:35)
[2017-11-14] MEDS: BISOPROLOL FUMARATE 5 MG TAB PO (09:33)
[2017-11-14] MEDS: DICLOFENAC EPOLAMINE 1.3 % PATCH TOP ×2 (09:34→20:34)
[2017-11-14] MEDS: NS 1,000 ML IV (11:40)
[2017-11-15] MEDS: NS 1,000 ML IV ×2 (01:00→14:20)
[2017-11-15] MEDS: LevoFLOXacin 250 MG TABLET PO (06:31)
[2017-11-15] MEDS: LEVOTHYROXINE 50MCG TABLET (0.05MG) PO (06:31)
[2017-11-15] MEDS: CEFDINIR 300 MG CAP (OMNICEF) PO ×2 (09:00→21:25)
[2017-11-15] MEDS: SENOKOT S TAB PO ×2 (09:46→21:00)
[2017-11-15] MEDS: MULTIVITAMINS/MINERALS THERAP 1 TAB PO (09:46)
[2017-11-15] MEDS: PANTOPRAZOLE 40MG TAB (PROTONIX) PO (09:46)
[2017-11-15] MEDS: BISOPROLOL FUMARATE 5 MG TAB PO (09:47)
[2017-11-15] MEDS: AMIODARONE 200 MG TAB (PACERONE) PO (09:47)
[2017-11-15] MEDS: APIXABAN 2.5 MG TAB (ELIQUIS) PO ×2 (09:47→21:25)
[2017-11-15] MEDS: DICLOFENAC EPOLAMINE 1.3 % PATCH TOP ×2 (09:48→21:25)
[2017-11-16] MEDS: LEVOTHYROXINE 50MCG TABLET (0.05MG) PO (06:04)
[2017-11-16] MEDS: DICLOFENAC EPOLAMINE 1.3 % PATCH TOP ×2 (08:06→20:30)
[2017-11-16] MEDS: MULTIVITAMINS/MINERALS THERAP 1 TAB PO (08:06)
[2017-11-16] MEDS: APIXABAN 2.5 MG TAB (ELIQUIS) PO ×2 (08:07→20:29)
[2017-11-16] MEDS: PANTOPRAZOLE 40MG TAB (PROTONIX) PO (08:07)
[2017-11-16] MEDS: AMIODARONE 200 MG TAB (PACERONE) PO (08:07)
[2017-11-16] MEDS: CEFDINIR 300 MG CAP (OMNICEF) PO ×2 (08:07→20:29)
[2017-11-16] MEDS: BISOPROLOL FUMARATE 5 MG TAB PO (08:07)
[2017-11-16] MEDS: SENOKOT S TAB PO ×2 (08:07→20:29)
[2017-11-16 09:55] LABS: BASO % 0.3 % (0.0-1.0); EOS # 0.1 10^3/uL (0.0-0.50); EOS % 0.5 % (0.0-3.0); HEMATOCRIT 35.2 % (36.0-47.0); HEMOGLOBIN 11.3 g/dl (12.0-15.5); IMMATURE GRANULOCYTE % 0.3 % (0-3.0); LYMPH # 2.3 10^3/uL (1.5-4.5); LYMPH % 19.2 % (24.0-44.0); MEAN CORPUSCULAR HEMOGLOBIN 31.4 pg (27.0-33.0); MEAN CORPUSCULAR HGB CONC 32.1 g/dl (32.0-36.5); MEAN CORPUSCULAR VOLUME 97.8 fl (80.0-96.0); MONO % 8.8 % (0.0-5.0); NEUTROPHILS # 8.4 10^3/uL (1.8-7.7); NEUTROPHILS % 70.9 % (36.0-66.0); PLATELET COUNT, AUTOMATED 286 10^3/uL (150-450); RED CELL DISTRIBUTION WIDTH 14.4 % (11.5-14.5); WHITE BLOOD COUNT 11.8 10^3/uL (4.0-10.0)
[2017-11-16 10:17] LABS: ANION GAP 8 MEQ/L (8-16); BLOOD UREA NITROGEN 15 MG/DL (7-18); CALCIUM LEVEL 8.7 MG/DL (8.8-10.2); CARBON DIOXIDE LEVEL 26 MEQ/L (21-32); CHLORIDE LEVEL 107 MEQ/L (98-107); GLUCOSE, FASTING 104 MG/DL (70-100); POTASSIUM SERUM 4.3 MEQ/L (3.5-5.1); SODIUM LEVEL 141 MEQ/L (136-145)
[2017-11-16] MEDS: ACETAMINOPHEN TAB 650MG DOSE (2X325MG) PO (14:06)
[2017-11-17] MEDS: LEVOTHYROXINE 50MCG TABLET (0.05MG) PO (06:04)
[2017-11-17] MEDS: PANTOPRAZOLE 40MG TAB (PROTONIX) PO (09:06)
[2017-11-17] MEDS: AMIODARONE 200 MG TAB (PACERONE) PO (09:06)
[2017-11-17] MEDS: MULTIVITAMINS/MINERALS THERAP 1 TAB PO (09:06)
[2017-11-17] MEDS: APIXABAN 2.5 MG TAB (ELIQUIS) PO ×2 (09:06→21:24)
[2017-11-17] MEDS: DICLOFENAC EPOLAMINE 1.3 % PATCH TOP ×2 (09:06→21:24)
[2017-11-17] MEDS: SENOKOT S TAB PO ×2 (09:06→21:24)
[2017-11-17] MEDS: CEFDINIR 300 MG CAP (OMNICEF) PO ×2 (09:06→21:24)
[2017-11-17] MEDS: BISOPROLOL FUMARATE 5 MG TAB PO (09:07)
[2017-11-17 11:19] LABS: BASO % 0.2 % (0.0-1.0); EOS # 0.1 10^3/uL (0.0-0.50); EOS % 0.6 % (0.0-3.0); HEMATOCRIT 35.8 % (36.0-47.0); HEMOGLOBIN 11.7 g/dl (12.0-15.5); IMMATURE GRANULOCYTE % 0.2 % (0-3.0); LYMPH # 0.8 10^3/uL (1.5-4.5); LYMPH % 9.5 % (24.0-44.0); MEAN CORPUSCULAR HGB CONC 32.7 g/dl (32.0-36.5); MEAN CORPUSCULAR VOLUME 97.8 fl (80.0-96.0); MONO # 0.7 10^3/uL (0.0-0.8); MONO % 8.7 % (0.0-5.0); NEUTROPHILS # 6.7 10^3/uL (1.8-7.7); NEUTROPHILS % 80.8 % (36.0-66.0); PLATELET COUNT, AUTOMATED 276 10^3/uL (150-450); RED BLOOD COUNT 3.66 10^6/uL (4.00-5.40); RED CELL DISTRIBUTION WIDTH 14.3 % (11.5-14.5); WHITE BLOOD COUNT 8.3 10^3/uL (4.0-10.0)
[2017-11-17 11:29] LABS: ANION GAP 6 MEQ/L (8-16); BLOOD UREA NITROGEN 14 MG/DL (7-18); CALCIUM LEVEL 8.9 MG/DL (8.8-10.2); CARBON DIOXIDE LEVEL 30 MEQ/L (21-32); CHLORIDE LEVEL 105 MEQ/L (98-107); CREATININE FOR GFR 0.99 MG/DL (0.55-1.30); GLOMERULAR FILTRATION RATE 56.2 (>32); GLUCOSE, FASTING 115 MG/DL (70-100); POTASSIUM SERUM 4.3 MEQ/L (3.5-5.1); SODIUM LEVEL 141 MEQ/L (136-145)
[2017-11-18] MEDS: LEVOTHYROXINE 50MCG TABLET (0.05MG) PO ×2 (05:56→06:02)
[2017-11-18] MEDS: DICLOFENAC EPOLAMINE 1.3 % PATCH TOP (08:01)
[2017-11-18] MEDS: AMIODARONE 200 MG TAB (PACERONE) PO (08:01)
[2017-11-18] MEDS: APIXABAN 2.5 MG TAB (ELIQUIS) PO (08:01)
[2017-11-18] MEDS: MULTIVITAMINS/MINERALS THERAP 1 TAB PO (08:01)
[2017-11-18] MEDS: PANTOPRAZOLE 40MG TAB (PROTONIX) PO (08:01)
[2017-11-18] MEDS: CEFDINIR 300 MG CAP (OMNICEF) PO (08:01)
[2017-11-18] MEDS: SENOKOT S TAB PO (08:01)
[2017-11-18] MEDS: BISOPROLOL FUMARATE 5 MG TAB PO (08:02)
== END 2017-11-18 12:35 | disposition home health service (06) | DRG 560 ==
LOC: M PM&R 15:10
DX: M80.88XD Other osteoporosis with current pathological fracture, vertebra(e), subsequent encounter for fracture with routine healing (principal); N39.0 Urinary tract infection, site not specified; I48.91 Unspecified atrial fibrillation; I10 Essential (primary) hypertension; E87.6 Hypokalemia; Z79.899 Other long term (current) drug therapy; Z88.8 Allergy status to other drugs, medicaments and biological substances; Z95.0 Presence of cardiac pacemaker; E03.9 Hypothyroidism, unspecified; B96.29 Other Escherichia coli [E. coli] as the cause of diseases classified elsewhere; I35.8 Other nonrheumatic aortic valve disorders; E86.0 Dehydration; R55 Syncope and collapse; D72.829 Elevated white blood cell count, unspecified; Z79.01 Long term (current) use of anticoagulants; I49.5 Sick sinus syndrome

== ENCOUNTER 2017-11-25 10:36 | Inpatient (IN) | payer MEDICARE, BC ==
[~2017-11-25 10:36] MED LIST changes: +BISOPROLOL FUM 2.5 MG PER 1/2TAB PO; -ENOXAPARIN 40 MG/0.4 ML SYRINGE (J1650) SC
[2017-11-25] MEDS: ONDANSETRON 4MG/2ML VIAL (J2405) IV (11:30)
[2017-11-25] MEDS: MORPHINE 2 MG/ML 1ML SYRINGE (J2270) IV (12:01)
[2017-11-25 12:07] LABS: BASO % 0.3 % (0.0-1.0); EOS % 0.3 % (0.0-3.0); HEMATOCRIT 30.8 % (36.0-47.0); HEMOGLOBIN 10.3 g/dl (12.0-15.5); IMMATURE GRANULOCYTE % 0.5 % (0-3.0); LYMPH # 0.6 10^3/uL (1.5-4.5); LYMPH % 6.1 % (24.0-44.0); MEAN CORPUSCULAR HEMOGLOBIN 32.1 pg (27.0-33.0); MEAN CORPUSCULAR HGB CONC 33.4 g/dl (32.0-36.5); MONO # 0.9 10^3/uL (0.0-0.8); MONO % 9.1 % (0.0-5.0); NEUTROPHILS # 8.5 10^3/uL (1.8-7.7); NEUTROPHILS % 83.7 % (36.0-66.0); PLATELET COUNT, AUTOMATED 182 10^3/uL (150-450); RED BLOOD COUNT 3.21 10^6/uL (4.00-5.40); RED CELL DISTRIBUTION WIDTH 14.2 % (11.5-14.5); WHITE BLOOD COUNT 10.1 10^3/uL (4.0-10.0)
[2017-11-25 12:19] LABS: INR 1.09; PARTIAL THROMBOPLASTIN TIME 25.2 SECONDS (26.8-37.9); PROTHROMBIN TIME 14.3 SECONDS (12.4-14.5)
[2017-11-25 12:48] LABS: ANION GAP 5 MEQ/L (8-16); BLOOD UREA NITROGEN 16 MG/DL (7-18); CALCIUM LEVEL 8.9 MG/DL (8.8-10.2); CARBON DIOXIDE LEVEL 28 MEQ/L (21-32); CHLORIDE LEVEL 105 MEQ/L (98-107); CK-MB VALUE MASS 1.1 NG/ML (<3.6); CPK CREATINE PHOSPHOKINASE 68 U/L (26-192); CREATININE FOR GFR 0.96 MG/DL (0.55-1.30); GLOMERULAR FILTRATION RATE 58.3 (>32); GLUCOSE, FASTING 113 MG/DL (70-100); MB/CK RELATIVE INDEX 1.61 (< OR =4); POTASSIUM SERUM 4.3 MEQ/L (3.5-5.1); SODIUM LEVEL 138 MEQ/L (136-145); TROPONIN I < 0.02 NG/ML (< 0.10)
[2017-11-25] MEDS ORDERED: MORPHINE 4 MG/ML 1ML VIAL/SYRINGE (J2270) IV (14:00)
[2017-11-25] MEDS ORDERED: ONDANSETRON 4MG/2ML VIAL (J2405) IV (14:00)
[2017-11-25] MEDS ORDERED: ACETAMINOPHEN TAB 650MG DOSE (2X325MG) PO (14:00)
[2017-11-25] MEDS: HEPARIN SOD (PORCINE) 5000 UNITS/ML VIAL SC ×2 (14:39→21:50)
[2017-11-25] MEDS: MULTIVITAMINS/MINERALS THERAP 1 TAB PO (14:39)
[2017-11-25] MEDS: LEVOTHYROXINE 50MCG TABLET (0.05MG) PO (14:40)
[2017-11-25] MEDS: AMIODARONE 200 MG TAB (PACERONE) PO (14:40)
[2017-11-25] MEDS: PANTOPRAZOLE 40MG TAB (PROTONIX) PO (14:40)
[2017-11-25 15:09] LABS: T UPTAKE 40 % (30-39)
[2017-11-25 15:10] LABS: FREE THYROXINE INDEX 5.7 % (1.3-4.8); THYROXINE (T4) 14.2 UG/DL (4.5-12.0)
[2017-11-25] MEDS: BISOPROLOL FUMARATE 5 MG TAB PO (16:01)
[2017-11-25 19:09] LABS: CK-MB VALUE MASS 1.3 NG/ML (<3.6); CPK CREATINE PHOSPHOKINASE 69 U/L (26-192); MB/CK RELATIVE INDEX 1.88 (< OR =4); TROPONIN I < 0.02 NG/ML (< 0.10)
[2017-11-25] MEDS: SENOKOT S TAB PO (21:50)
[2017-11-25] MEDS: LACTOBACILLUS ACIDOPHILUS CAP (BACID) PO (21:50)
[2017-11-25] MEDS: PERCOCET 5MG/325MG TAB PO (21:51)
[2017-11-26] MEDS: LEVOTHYROXINE 50MCG TABLET (0.05MG) PO (05:57)
[2017-11-26] MEDS: HEPARIN SOD (PORCINE) 5000 UNITS/ML VIAL SC ×3 (05:58→21:26)
[2017-11-26 07:04] LABS: HEMATOCRIT 25.5 % (36.0-47.0); HEMOGLOBIN 8.7 g/dl (12.0-15.5); MEAN CORPUSCULAR HEMOGLOBIN 32.2 pg (27.0-33.0); MEAN CORPUSCULAR HGB CONC 34.1 g/dl (32.0-36.5); MEAN CORPUSCULAR VOLUME 94.4 fl (80.0-96.0); PLATELET COUNT, AUTOMATED 154 10^3/uL (150-450); RED CELL DISTRIBUTION WIDTH 14.3 % (11.5-14.5); WHITE BLOOD COUNT 9.3 10^3/uL (4.0-10.0)
[2017-11-26 07:15] LABS: INR 1.13; PROTHROMBIN TIME 14.7 SECONDS (12.4-14.5)
[2017-11-26 07:20] LABS: ANION GAP 5 MEQ/L (8-16); BLOOD UREA NITROGEN 17 MG/DL (7-18); CALCIUM LEVEL 8.6 MG/DL (8.8-10.2); CARBON DIOXIDE LEVEL 28 MEQ/L (21-32); CHLORIDE LEVEL 105 MEQ/L (98-107); CREATININE FOR GFR 0.82 MG/DL (0.55-1.30); GLOMERULAR FILTRATION RATE > 60.0 (>32); GLUCOSE, FASTING 120 MG/DL (70-100); POTASSIUM SERUM 4.1 MEQ/L (3.5-5.1); SODIUM LEVEL 138 MEQ/L (136-145)
[2017-11-26] MEDS: SENOKOT S TAB PO ×2 (08:38→21:26)
[2017-11-26] MEDS: PANTOPRAZOLE 40MG TAB (PROTONIX) PO (08:38)
[2017-11-26] MEDS: MULTIVITAMINS/MINERALS THERAP 1 TAB PO (08:38)
[2017-11-26] MEDS: BISOPROLOL FUMARATE 5 MG TAB PO (08:38)
[2017-11-26] MEDS: LACTOBACILLUS ACIDOPHILUS CAP (BACID) PO ×2 (08:38→21:26)
[2017-11-26] MEDS: AMIODARONE 200 MG TAB (PACERONE) PO (08:38)
[2017-11-27] MEDS: LEVOTHYROXINE 50MCG TABLET (0.05MG) PO (06:01)
[2017-11-27] MEDS: HEPARIN SOD (PORCINE) 5000 UNITS/ML VIAL SC ×2 (06:01→14:10)
[2017-11-27 06:22] LABS: HEMATOCRIT 24.4 % (36.0-47.0); HEMOGLOBIN 8.2 g/dl (12.0-15.5); MEAN CORPUSCULAR HGB CONC 33.6 g/dl (32.0-36.5); MEAN CORPUSCULAR VOLUME 95.3 fl (80.0-96.0); PLATELET COUNT, AUTOMATED 151 10^3/uL (150-450); RED BLOOD COUNT 2.56 10^6/uL (4.00-5.40); RED CELL DISTRIBUTION WIDTH 14.5 % (11.5-14.5); WHITE BLOOD COUNT 11.8 10^3/uL (4.0-10.0)
[2017-11-27 06:39] LABS: INR 1.03; PROTHROMBIN TIME 13.7 SECONDS (12.4-14.5)
[2017-11-27 06:49] LABS: ANION GAP 8 MEQ/L (8-16); BLOOD UREA NITROGEN 25 MG/DL (7-18); CALCIUM LEVEL 8.3 MG/DL (8.8-10.2); CARBON DIOXIDE LEVEL 25 MEQ/L (21-32); CHLORIDE LEVEL 104 MEQ/L (98-107); CREATININE FOR GFR 0.87 MG/DL (0.55-1.30); GLOMERULAR FILTRATION RATE > 60.0 (>32); GLUCOSE, FASTING 122 MG/DL (70-100); MAGNESIUM LEVEL 2.2 MG/DL (1.8-2.4); POTASSIUM SERUM 4.4 MEQ/L (3.5-5.1); SODIUM LEVEL 137 MEQ/L (136-145)
[2017-11-27] MEDS: SENOKOT S TAB PO ×2 (08:40→20:10)
[2017-11-27] MEDS: PANTOPRAZOLE 40MG TAB (PROTONIX) PO (08:40)
[2017-11-27] MEDS: AMIODARONE 200 MG TAB (PACERONE) PO (08:40)
[2017-11-27] MEDS: MULTIVITAMINS/MINERALS THERAP 1 TAB PO (08:40)
[2017-11-27] MEDS: BISOPROLOL FUMARATE 5 MG TAB PO (08:40)
[2017-11-27] MEDS: LACTOBACILLUS ACIDOPHILUS CAP (BACID) PO ×2 (10:32→20:09)
[2017-11-27 17:17] LABS: HEMATOCRIT 24.8 % (36.0-47.0); HEMOGLOBIN 8.3 g/dl (12.0-15.5); MEAN CORPUSCULAR HEMOGLOBIN 32.2 pg (27.0-33.0); MEAN CORPUSCULAR HGB CONC 33.5 g/dl (32.0-36.5); MEAN CORPUSCULAR VOLUME 96.1 fl (80.0-96.0); PLATELET COUNT, AUTOMATED 157 10^3/uL (150-450); RED BLOOD COUNT 2.58 10^6/uL (4.00-5.40); RED CELL DISTRIBUTION WIDTH 14.6 % (11.5-14.5); WHITE BLOOD COUNT 12.3 10^3/uL (4.0-10.0)
[2017-11-28] MEDS: D5W/0.45% SODIUM CHLORIDE 1,000 ML IV (00:29)
[2017-11-28] MEDS: LEVOTHYROXINE 50MCG TABLET (0.05MG) PO (05:16)
[2017-11-28 06:40] LABS: HEMATOCRIT 24.2 % (36.0-47.0); HEMOGLOBIN 8.1 g/dl (12.0-15.5); MEAN CORPUSCULAR HEMOGLOBIN 31.8 pg (27.0-33.0); MEAN CORPUSCULAR HGB CONC 33.5 g/dl (32.0-36.5); MEAN CORPUSCULAR VOLUME 94.9 fl (80.0-96.0); PLATELET COUNT, AUTOMATED 161 10^3/uL (150-450); RED BLOOD COUNT 2.55 10^6/uL (4.00-5.40); RED CELL DISTRIBUTION WIDTH 14.4 % (11.5-14.5); WHITE BLOOD COUNT 10.9 10^3/uL (4.0-10.0)
[2017-11-28 06:56] LABS: INR 1.03; PROTHROMBIN TIME 13.7 SECONDS (12.4-14.5)
[2017-11-28 06:59] LABS: ANION GAP 6 MEQ/L (8-16); BLOOD UREA NITROGEN 20 MG/DL (7-18); CALCIUM LEVEL 8.3 MG/DL (8.8-10.2); CARBON DIOXIDE LEVEL 27 MEQ/L (21-32); CHLORIDE LEVEL 103 MEQ/L (98-107); CREATININE FOR GFR 0.73 MG/DL (0.55-1.30); GLOMERULAR FILTRATION RATE > 60.0 (>32); GLUCOSE, FASTING 120 MG/DL (70-100); POTASSIUM SERUM 4.3 MEQ/L (3.5-5.1); SODIUM LEVEL 136 MEQ/L (136-145)
[2017-11-28] MEDS ORDERED: PROPOFOL 200 MG/20 ML VIAL As Ordered (08:12)
[2017-11-28] MEDS ORDERED: fentaNYL 100 MCG/2 ML INJECTION (J3010) As Ordered ×2 (08:13→11:18)
[2017-11-28] MEDS ORDERED: MIDAZOLAM INJ 2 MG/2 ML VIAL (J2250) As Ordered (08:13)
[2017-11-28] MEDS ORDERED: KETAMINE HCL 200 MG/20 ML VIAL As Ordered (08:19)
[2017-11-28 08:31] LABS: FREE T4 1.46 NG/DL (0.76-1.46)
[2017-11-28] MEDS ORDERED: ceFAZolin 2 GM/D5W 50 ML IV BAG (J0690 PER 500MG) As Ordered (08:38)
[2017-11-28] MEDS ORDERED: PHENYLephrine HCL 500 MCG/5 ML (100MCG/ML) SYRINGE (J2370) As Ordered (09:12)
[2017-11-28] MEDS: ceFAZolin 1GM INJ (J0690 PER 500MG) As Ordered (09:32)
[2017-11-28] MEDS ORDERED: PHENYLEPHRINE INJ 10MG/ML VIAL (J2370) As Ordered (10:18)
[2017-11-28] MEDS ORDERED: D5W 100ML MINI-BAG PLUS As Ordered (10:22)
[2017-11-28] MEDS: BUPIVACAINE/EPIN 0.5% 30 ML VIAL As Ordered (10:23)
[2017-11-28] MEDS ORDERED: ONDANSETRON 4MG/2ML VIAL (J2405) IV ×2 (11:00→11:15)
[2017-11-28] MEDS ORDERED: MORPHINE 4 MG/ML 1ML VIAL/SYRINGE (J2270) IV (11:15)
[2017-11-28] MEDS: fentaNYL 100 MCG/2 ML INJECTION (J3010) IV (11:15)
[2017-11-28] MEDS: LR 1,000 ML IV ×3 (12:30→20:25)
[2017-11-28] MEDS: MULTIVITAMINS/MINERALS THERAP 1 TAB PO (14:28)
[2017-11-28] MEDS: PANTOPRAZOLE 40MG TAB (PROTONIX) PO (14:29)
[2017-11-28] MEDS: BISOPROLOL FUM 2.5 MG PER 1/2TAB PO (14:29)
[2017-11-28] MEDS: SENOKOT S TAB PO ×2 (14:29→20:26)
[2017-11-28] MEDS: LACTOBACILLUS ACIDOPHILUS CAP (BACID) PO ×2 (14:29→20:25)
[2017-11-28] MEDS: BISOPROLOL FUMARATE 5 MG TAB PO (14:30)
[2017-11-28] MEDS: AMIODARONE 200 MG TAB (PACERONE) PO (14:30)
[2017-11-28] MEDS: ceFAZolin SOD 1 GM in D5W MINI-BAG PLUS 50 ML IV ×2 (16:26→23:43)
[2017-11-28] MEDS: PERCOCET 5MG/325MG TAB PO (20:26)
[2017-11-28] MEDS ORDERED: APIXABAN 2.5 MG TAB (ELIQUIS) PO (21:00)
[2017-11-29] MEDS: LEVOTHYROXINE 50MCG TABLET (0.05MG) PO (05:28)
[2017-11-29] MEDS: LR 1,000 ML IV (05:28)
[2017-11-29 06:48] LABS: HEMATOCRIT 21.5 % (36.0-47.0); HEMOGLOBIN 7.2 g/dl (12.0-15.5); MEAN CORPUSCULAR HEMOGLOBIN 32.7 pg (27.0-33.0); MEAN CORPUSCULAR HGB CONC 33.5 g/dl (32.0-36.5); MEAN CORPUSCULAR VOLUME 97.7 fl (80.0-96.0); PLATELET COUNT, AUTOMATED 153 10^3/uL (150-450); RED CELL DISTRIBUTION WIDTH 14.6 % (11.5-14.5); WHITE BLOOD COUNT 10.6 10^3/uL (4.0-10.0)
[2017-11-29 07:00] LABS: INR 1.07; PROTHROMBIN TIME 14.1 SECONDS (12.4-14.5)
[2017-11-29 07:03] LABS: ANION GAP 4 MEQ/L (8-16); BLOOD UREA NITROGEN 15 MG/DL (7-18); CARBON DIOXIDE LEVEL 29 MEQ/L (21-32); CHLORIDE LEVEL 104 MEQ/L (98-107); CREATININE FOR GFR 0.66 MG/DL (0.55-1.30); GLOMERULAR FILTRATION RATE > 60.0 (>32); GLUCOSE, FASTING 113 MG/DL (70-100); MAGNESIUM LEVEL 1.9 MG/DL (1.8-2.4); POTASSIUM SERUM 4.2 MEQ/L (3.5-5.1); SODIUM LEVEL 137 MEQ/L (136-145)
[2017-11-29] MEDS: SENOKOT S TAB PO ×2 (09:22→20:11)
[2017-11-29] MEDS: LACTOBACILLUS ACIDOPHILUS CAP (BACID) PO ×2 (09:22→20:09)
[2017-11-29] MEDS: PANTOPRAZOLE 40MG TAB (PROTONIX) PO (09:22)
[2017-11-29] MEDS: AMIODARONE 200 MG TAB (PACERONE) PO (09:22)
[2017-11-29] MEDS: APIXABAN 2.5 MG TAB (ELIQUIS) PO ×2 (09:22→20:09)
[2017-11-29] MEDS: BISOPROLOL FUM 2.5 MG PER 1/2TAB PO (09:22)
[2017-11-29] MEDS: BISOPROLOL FUMARATE 5 MG TAB PO (09:23)
[2017-11-29] MEDS: ACETAMINOPHEN TAB 650MG DOSE (2X325MG) PO ×2 (09:23→20:10)
[2017-11-29] MEDS: MULTIVITAMINS/MINERALS THERAP 1 TAB PO (09:23)
[2017-11-29] MEDS: MOM 30ML SUSPENSION UDC PO (09:24)
[2017-11-29] MEDS: MIRALAX *UNIT DOSE* 17GM PACKET PO (09:24)
[2017-11-29 10:11] LABS: IMMEDIATE SPIN CROSSMATCH 1 1
[2017-11-29 15:00] LABS: HEMATOCRIT 26.5 % (36.0-47.0); HEMOGLOBIN 8.9 g/dl (12.0-15.5)
[2017-11-30] MEDS: LEVOTHYROXINE 50MCG TABLET (0.05MG) PO (05:42)
[2017-11-30] MEDS: ACETAMINOPHEN TAB 650MG DOSE (2X325MG) PO (05:42)
[2017-11-30 06:36] LABS: HEMATOCRIT 24.7 % (36.0-47.0); HEMOGLOBIN 8.4 g/dl (12.0-15.5); MEAN CORPUSCULAR VOLUME 91.1 fl (80.0-96.0); PLATELET COUNT, AUTOMATED 177 10^3/uL (150-450); RED BLOOD COUNT 2.71 10^6/uL (4.00-5.40); RED CELL DISTRIBUTION WIDTH 17.2 % (11.5-14.5); WHITE BLOOD COUNT 10.4 10^3/uL (4.0-10.0)
[2017-11-30 07:03] LABS: ANION GAP 5 MEQ/L (8-16); BLOOD UREA NITROGEN 17 MG/DL (7-18); CALCIUM LEVEL 7.9 MG/DL (8.8-10.2); CARBON DIOXIDE LEVEL 28 MEQ/L (21-32); CHLORIDE LEVEL 105 MEQ/L (98-107); CREATININE FOR GFR 0.65 MG/DL (0.55-1.30); GLOMERULAR FILTRATION RATE > 60.0 (>32); GLUCOSE, FASTING 107 MG/DL (70-100); MAGNESIUM LEVEL 2.1 MG/DL (1.8-2.4); POTASSIUM SERUM 3.7 MEQ/L (3.5-5.1); SODIUM LEVEL 138 MEQ/L (136-145)
[2017-11-30] MEDS: MOM 30ML SUSPENSION UDC PO (09:00)
[2017-11-30] MEDS: MIRALAX *UNIT DOSE* 17GM PACKET PO (09:00)
[2017-11-30] MEDS: SENOKOT S TAB PO ×2 (09:00→20:00)
[2017-11-30] MEDS: AMIODARONE 200 MG TAB (PACERONE) PO (09:05)
[2017-11-30] MEDS: PANTOPRAZOLE 40MG TAB (PROTONIX) PO (09:06)
[2017-11-30] MEDS: MULTIVITAMINS/MINERALS THERAP 1 TAB PO (09:06)
[2017-11-30] MEDS: APIXABAN 2.5 MG TAB (ELIQUIS) PO ×2 (09:06→20:00)
[2017-11-30] MEDS: BISOPROLOL FUM 2.5 MG PER 1/2TAB PO (09:08)
[2017-11-30] MEDS: LACTOBACILLUS ACIDOPHILUS CAP (BACID) PO ×2 (09:08→20:00)
[2017-11-30] MEDS: BISOPROLOL FUMARATE 5 MG TAB PO (09:08)
[2017-12-01] MEDS: LEVOTHYROXINE 50MCG TABLET (0.05MG) PO (05:56)
[2017-12-01 06:33] LABS: HEMATOCRIT 23.6 % (36.0-47.0); HEMOGLOBIN 7.9 g/dl (12.0-15.5); MEAN CORPUSCULAR HGB CONC 33.5 g/dl (32.0-36.5); MEAN CORPUSCULAR VOLUME 92.5 fl (80.0-96.0); PLATELET COUNT, AUTOMATED 195 10^3/uL (150-450); RED BLOOD COUNT 2.55 10^6/uL (4.00-5.40); RED CELL DISTRIBUTION WIDTH 16.8 % (11.5-14.5); WHITE BLOOD COUNT 9.2 10^3/uL (4.0-10.0)
[2017-12-01 06:48] LABS: ANION GAP 5 MEQ/L (8-16); BLOOD UREA NITROGEN 21 MG/DL (7-18); CALCIUM LEVEL 7.9 MG/DL (8.8-10.2); CARBON DIOXIDE LEVEL 27 MEQ/L (21-32); CHLORIDE LEVEL 107 MEQ/L (98-107); GLOMERULAR FILTRATION RATE > 60.0 (>32); GLUCOSE, FASTING 100 MG/DL (70-100); MAGNESIUM LEVEL 2.2 MG/DL (1.8-2.4); POTASSIUM SERUM 3.8 MEQ/L (3.5-5.1); SODIUM LEVEL 139 MEQ/L (136-145)
[2017-12-01] MEDS: BISOPROLOL FUM 2.5 MG PER 1/2TAB PO (09:00)
[2017-12-01] MEDS: BISOPROLOL FUMARATE 5 MG TAB PO (09:00)
[2017-12-01] MEDS: MIRALAX *UNIT DOSE* 17GM PACKET PO (09:03)
[2017-12-01] MEDS: SENOKOT S TAB PO ×2 (09:03→19:29)
[2017-12-01] MEDS: PANTOPRAZOLE 40MG TAB (PROTONIX) PO (09:03)
[2017-12-01] MEDS: MOM 30ML SUSPENSION UDC PO (09:03)
[2017-12-01] MEDS: MULTIVITAMINS/MINERALS THERAP 1 TAB PO (09:03)
[2017-12-01] MEDS: AMIODARONE 200 MG TAB (PACERONE) PO (09:03)
[2017-12-01] MEDS: APIXABAN 2.5 MG TAB (ELIQUIS) PO ×2 (09:03→19:27)
[2017-12-01] MEDS: LACTOBACILLUS ACIDOPHILUS CAP (BACID) PO ×2 (09:03→19:29)
[2017-12-01] MEDS: ACETAMINOPHEN TAB 650MG DOSE (2X325MG) PO (19:28)
[2017-12-02] MEDS: LEVOTHYROXINE 50MCG TABLET (0.05MG) PO (06:02)
[2017-12-02 06:38] LABS: HEMATOCRIT 25.7 % (36.0-47.0); HEMOGLOBIN 8.4 g/dl (12.0-15.5); MEAN CORPUSCULAR HGB CONC 32.7 g/dl (32.0-36.5); MEAN CORPUSCULAR VOLUME 94.8 fl (80.0-96.0); PLATELET COUNT, AUTOMATED 231 10^3/uL (150-450); RED BLOOD COUNT 2.71 10^6/uL (4.00-5.40); RED CELL DISTRIBUTION WIDTH 16.5 % (11.5-14.5); WHITE BLOOD COUNT 6.5 10^3/uL (4.0-10.0)
[2017-12-02 07:00] LABS: ANION GAP 5 MEQ/L (8-16); BLOOD UREA NITROGEN 17 MG/DL (7-18); CALCIUM LEVEL 8.1 MG/DL (8.8-10.2); CARBON DIOXIDE LEVEL 29 MEQ/L (21-32); CHLORIDE LEVEL 107 MEQ/L (98-107); GLOMERULAR FILTRATION RATE > 60.0 (>32); GLUCOSE, FASTING 86 MG/DL (70-100); MAGNESIUM LEVEL 2.2 MG/DL (1.8-2.4); POTASSIUM SERUM 3.6 MEQ/L (3.5-5.1); SODIUM LEVEL 141 MEQ/L (136-145)
[2017-12-02] MEDS: MOM 30ML SUSPENSION UDC PO (09:15)
[2017-12-02] MEDS: MIRALAX *UNIT DOSE* 17GM PACKET PO (09:15)
[2017-12-02] MEDS: PANTOPRAZOLE 40MG TAB (PROTONIX) PO (09:15)
[2017-12-02] MEDS: MULTIVITAMINS/MINERALS THERAP 1 TAB PO (09:15)
[2017-12-02] MEDS: AMIODARONE 200 MG TAB (PACERONE) PO (09:16)
[2017-12-02] MEDS: ACETAMINOPHEN TAB 650MG DOSE (2X325MG) PO ×2 (09:16→17:49)
[2017-12-02] MEDS: BISOPROLOL FUM 2.5 MG PER 1/2TAB PO (09:16)
[2017-12-02] MEDS: APIXABAN 2.5 MG TAB (ELIQUIS) PO ×2 (09:16→21:29)
[2017-12-02] MEDS: SENOKOT S TAB PO ×2 (09:16→21:00)
[2017-12-02] MEDS: LACTOBACILLUS ACIDOPHILUS CAP (BACID) PO ×2 (09:16→21:29)
[2017-12-02] MEDS: BISOPROLOL FUMARATE 5 MG TAB PO (09:16)
[2017-12-03] MEDS: LEVOTHYROXINE 50MCG TABLET (0.05MG) PO (05:32)
[2017-12-03] MEDS: ACETAMINOPHEN TAB 650MG DOSE (2X325MG) PO (05:33)
[2017-12-03] MEDS: AMIODARONE 200 MG TAB (PACERONE) PO (08:59)
[2017-12-03] MEDS: MULTIVITAMINS/MINERALS THERAP 1 TAB PO (08:59)
[2017-12-03] MEDS: LACTOBACILLUS ACIDOPHILUS CAP (BACID) PO (08:59)
[2017-12-03] MEDS: PANTOPRAZOLE 40MG TAB (PROTONIX) PO (08:59)
[2017-12-03] MEDS: BISOPROLOL FUMARATE 5 MG TAB PO (08:59)
[2017-12-03] MEDS: APIXABAN 2.5 MG TAB (ELIQUIS) PO (08:59)
[2017-12-03] MEDS: MIRALAX *UNIT DOSE* 17GM PACKET PO (09:00)
[2017-12-03] MEDS: SENOKOT S TAB PO (09:00)
[2017-12-03] MEDS: MOM 30ML SUSPENSION UDC PO (09:00)
[2017-12-03] MEDS: BISOPROLOL FUM 2.5 MG PER 1/2TAB PO (09:00)
== END 2017-12-03 10:08 | DRG 482 ==
LOC: M ED 10:36 → M ED INP 13:53 → M MS5PR 16:10
PROC: 0QS706Z Reposition Left Upper Femur with Intramedullary Internal Fixation Device, Open Approach (ICD-10-PCS; principal; 2017-11-28 08:00)
DX: S72.142A Displaced intertrochanteric fracture of left femur, initial encounter for closed fracture (principal); I48.91 Unspecified atrial fibrillation; Z79.01 Long term (current) use of anticoagulants; Z95.0 Presence of cardiac pacemaker; I10 Essential (primary) hypertension; I49.5 Sick sinus syndrome; Z88.8 Allergy status to other drugs, medicaments and biological substances; W18.30XA Fall on same level, unspecified, initial encounter; Y92.009 Unspecified place in unspecified non-institutional (private) residence as the place of occurrence of the external cause; Z79.899 Other long term (current) drug therapy; M81.0 Age-related osteoporosis without current pathological fracture; R55 Syncope and collapse; M17.2 Bilateral post-traumatic osteoarthritis of knee; E03.9 Hypothyroidism, unspecified; Z86.73 Personal history of transient ischemic attack (TIA), and cerebral infarction without residual deficits; M48.061 Spinal stenosis, lumbar region without neurogenic claudication; F03.90 Unspecified dementia, unspecified severity, without behavioral disturbance, psychotic disturbance, mood disturbance, and anxiety

== ENCOUNTER → 2017-12-11 | Outpatient (REF) ==
[2017-12-11 09:58] LABS: HEMATOCRIT 34.7 % (36.0-47.0); MEAN CORPUSCULAR HEMOGLOBIN 32.1 pg (27.0-33.0); MEAN CORPUSCULAR HGB CONC 31.7 g/dl (32.0-36.5); MEAN CORPUSCULAR VOLUME 101.2 fl (80.0-96.0); PLATELET COUNT, AUTOMATED 220 10^3/uL (150-450); RED BLOOD COUNT 3.43 10^6/uL (4.00-5.40); RED CELL DISTRIBUTION WIDTH 17.6 % (11.5-14.5); WHITE BLOOD COUNT 6.9 10^3/uL (4.0-10.0)
[2017-12-11 10:33] LABS: ANION GAP 7 MEQ/L (8-16); BLOOD UREA NITROGEN 14 MG/DL (7-18); CALCIUM LEVEL 8.3 MG/DL (8.8-10.2); CARBON DIOXIDE LEVEL 30 MEQ/L (21-32); CHLORIDE LEVEL 105 MEQ/L (98-107); CREATININE FOR GFR 0.72 MG/DL (0.55-1.30); GLOMERULAR FILTRATION RATE > 60.0 (>32); GLUCOSE, FASTING 106 MG/DL (70-100); POTASSIUM SERUM 4.3 MEQ/L (3.5-5.1); SODIUM LEVEL 142 MEQ/L (136-145)
== END ==
DX: I48.91 Unspecified atrial fibrillation (principal)

== ENCOUNTER → 2017-12-15 | Outpatient (REF) ==
[2017-12-15 14:02] LABS: HEMOGLOBIN 11.1 g/dl (12.0-15.5); MEAN CORPUSCULAR HEMOGLOBIN 31.8 pg (27.0-33.0); MEAN CORPUSCULAR HGB CONC 31.7 g/dl (32.0-36.5); MEAN CORPUSCULAR VOLUME 100.3 fl (80.0-96.0); PLATELET COUNT, AUTOMATED 217 10^3/uL (150-450); RED BLOOD COUNT 3.49 10^6/uL (4.00-5.40); RED CELL DISTRIBUTION WIDTH 17.4 % (11.5-14.5); WHITE BLOOD COUNT 8.5 10^3/uL (4.0-10.0)
[2017-12-15 14:20] LABS: ANION GAP 6 MEQ/L (8-16); BLOOD UREA NITROGEN 22 MG/DL (7-18); CALCIUM LEVEL 8.6 MG/DL (8.8-10.2); CARBON DIOXIDE LEVEL 29 MEQ/L (21-32); CHLORIDE LEVEL 104 MEQ/L (98-107); CREATININE FOR GFR 0.82 MG/DL (0.55-1.30); GLOMERULAR FILTRATION RATE > 60.0 (>32); GLUCOSE, FASTING 108 MG/DL (70-100); POTASSIUM SERUM 4.7 MEQ/L (3.5-5.1); SODIUM LEVEL 139 MEQ/L (136-145)
== END ==
DX: R55 Syncope and collapse (principal)

== ENCOUNTER → 2018-01-05 | Outpatient (REF) ==
[2018-01-05 11:28] LABS: HEMATOCRIT 38.2 % (36.0-47.0); HEMOGLOBIN 12.2 g/dl (12.0-15.5); MEAN CORPUSCULAR HEMOGLOBIN 31.8 pg (27.0-33.0); MEAN CORPUSCULAR HGB CONC 31.9 g/dl (32.0-36.5); MEAN CORPUSCULAR VOLUME 99.5 fl (80.0-96.0); PLATELET COUNT, AUTOMATED 178 10^3/uL (150-450); RED BLOOD COUNT 3.84 10^6/uL (4.00-5.40); RED CELL DISTRIBUTION WIDTH 15.8 % (11.5-14.5); WHITE BLOOD COUNT 8.5 10^3/uL (4.0-10.0)
[2018-01-05 12:19] LABS: ANION GAP 10 MEQ/L (8-16); BLOOD UREA NITROGEN 37 MG/DL (7-18); CALCIUM LEVEL 9.1 MG/DL (8.8-10.2); CARBON DIOXIDE LEVEL 29 MEQ/L (21-32); CHLORIDE LEVEL 102 MEQ/L (98-107); CREATININE FOR GFR 0.96 MG/DL (0.55-1.30); GLOMERULAR FILTRATION RATE 58.3 (>32); GLUCOSE, FASTING 99 MG/DL (70-100); POTASSIUM SERUM 4.5 MEQ/L (3.5-5.1); SODIUM LEVEL 141 MEQ/L (136-145)
== END ==
DX: I48.91 Unspecified atrial fibrillation (principal)

== ENCOUNTER → 2018-05-11 | Outpatient (REF) ==
[2018-05-11 17:49] LABS: HEMATOCRIT 33.9 % (36.0-47.0); HEMOGLOBIN 11.3 g/dl (12.0-15.5); MEAN CORPUSCULAR HEMOGLOBIN 32.8 pg (27.0-33.0); MEAN CORPUSCULAR HGB CONC 33.3 g/dl (32.0-36.5); MEAN CORPUSCULAR VOLUME 98.5 fl (80.0-96.0); PLATELET COUNT, AUTOMATED 184 10^3/uL (150-450); RED BLOOD COUNT 3.44 10^6/uL (4.00-5.40); WHITE BLOOD COUNT 18.8 10^3/uL (4.0-10.0)
[2018-05-11 18:45] LABS: APPEARANCE, URINE HAZY (CLEAR); BACTERIA, URINE AUTO 3+ (NEGATIVE); BILIRUBIN, URINE AUTO NEGATIVE (NEGATIVE); BLOOD, URINE BLOOD 2+ (NEGATIVE); COLOR, URINE AMBER (YELLOW); GLUCOSE, URINE (UA) AUTO NEGATIVE (NEGATIVE); KETONE, URINE AUTO NEGATIVE (NEGATIVE); LEUKOCYTE ESTERASE, URINE AUTO TRACE (NEGATIVE); MUCUS, URINE SMALL (NEGATIVE); NITRITE, URINE AUTO NEGATIVE (NEGATIVE); PROTEIN, URINE AUTO 1+ mg/dL (NEGATIVE); RBC, URINE AUTO 5 /HPF (0-3); SPECIFIC GRAVITY URINE AUTO 1.019 (1.002-1.035); SQUAMOUS EPITHELIAL CELL UR AU 0 /HPF (0-6); UROBILINOGEN, URINE AUTO 0.2 mg/dL (0.0-2.0); WBC, URINE AUTO 13 /HPF (0-3)
[2018-05-11 22:08] LABS: ANION GAP 8 MEQ/L (8-16); BLOOD UREA NITROGEN 42 MG/DL (7-18); CALCIUM LEVEL 8.9 MG/DL (8.8-10.2); CARBON DIOXIDE LEVEL 29 MEQ/L (21-32); CHLORIDE LEVEL 107 MEQ/L (98-107); CREATININE FOR GFR 1.31 MG/DL (0.55-1.30); GLOMERULAR FILTRATION RATE 40.7 (>32); GLUCOSE, FASTING 98 MG/DL (70-100); POTASSIUM SERUM 4.7 MEQ/L (3.5-5.1); SODIUM LEVEL 144 MEQ/L (136-145)
== END ==
DX: R53.83 Other fatigue (principal)

== ENCOUNTER → 2018-05-12 | Outpatient (REF) ==
[2018-05-12 10:56] LABS: HEMATOCRIT 35.5 % (36.0-47.0); HEMOGLOBIN 11.4 g/dl (12.0-15.5); MEAN CORPUSCULAR HEMOGLOBIN 32.2 pg (27.0-33.0); MEAN CORPUSCULAR HGB CONC 32.1 g/dl (32.0-36.5); MEAN CORPUSCULAR VOLUME 100.3 fl (80.0-96.0); PLATELET COUNT, AUTOMATED 179 10^3/uL (150-450); RED BLOOD COUNT 3.54 10^6/uL (4.00-5.40); RED CELL DISTRIBUTION WIDTH 14.7 % (11.5-14.5); WHITE BLOOD COUNT 10.8 10^3/uL (4.0-10.0)
[2018-05-12 10:58] LABS: ANION GAP 9 MEQ/L (8-16); BLOOD UREA NITROGEN 34 MG/DL (7-18); CALCIUM LEVEL 8.7 MG/DL (8.8-10.2); CARBON DIOXIDE LEVEL 26 MEQ/L (21-32); CHLORIDE LEVEL 107 MEQ/L (98-107); CREATININE FOR GFR 0.89 MG/DL (0.55-1.30); GLOMERULAR FILTRATION RATE > 60.0 (>32); GLUCOSE, FASTING 118 MG/DL (70-100); SODIUM LEVEL 142 MEQ/L (136-145)
== END ==
DX: D72.829 Elevated white blood cell count, unspecified (principal)

== ENCOUNTER → 2018-06-30 | Outpatient (CLI) | payer MEDICARE, BC | LOC: M RAD 14:06 | DX: I48.0 Paroxysmal atrial fibrillation (principal); Z53.8 Procedure and treatment not carried out for other reasons ==

== ENCOUNTER → 2018-06-30 | Outpatient (REF) ==
[2018-06-30 19:20] LABS: ALBUMIN 3.4 GM/DL (3.2-5.2); ALBUMIN/GLOBULIN RATIO 0.94 (1.00-1.93); ALKALINE PHOSPHATASE 59 U/L (45-117); ALT/SGPT 27 U/L (12-78); ANION GAP 10 MEQ/L (8-16); AST/SGOT 18 U/L (7-37); BILIRUBIN,TOTAL 0.3 MG/DL (0.2-1.0); BLOOD UREA NITROGEN 41 MG/DL (7-18); CALCIUM LEVEL 8.6 MG/DL (8.8-10.2); CARBON DIOXIDE LEVEL 26 MEQ/L (21-32); CHLORIDE LEVEL 104 MEQ/L (98-107); CREATININE FOR GFR 0.92 MG/DL (0.55-1.30); GLOMERULAR FILTRATION RATE > 60.0 (>32); GLUCOSE, FASTING 89 MG/DL (70-100); MAGNESIUM LEVEL 2.2 MG/DL (1.8-2.4); POTASSIUM SERUM 4.4 MEQ/L (3.5-5.1); SODIUM LEVEL 140 MEQ/L (136-145)
== END ==
DX: I48.91 Unspecified atrial fibrillation (principal)